=== PATIENT | male | born 1945 | race Caucasian/White ===

== ENCOUNTER 2016-12-06 10:19 | Emergency (ER) | payer BC, MEDICARE ==
[~2016-12-06 10:19] MED LIST: /WARF3TA PO; CIPR500T89 PO; COUM7.5T PO; FERR28TA PO; FLOM5CAP PO; HYDR-3713 PO; METO100T PO; METO50TA2 PO; OXYB5TA PO; PARO40TA PO; PAXI40TA2 PO; PERCOCET PO; TOPR100T PO; TYLE325T5 PO; TYLE650T30 PO; VITA-112 PO; XARE15TA; ZYRT10CA PO
[2016-12-06] MEDS ORDERED: IPRATROPIUM 0.5MG/ALBUTEROL 2.5MG INH SOL UD 3ML (DUONEB)(J7620) As Ordered ONE (12:00)
[2016-12-06] MEDS ORDERED: AUGMENTIN 875 MG TAB As Ordered ONE (13:31)
--- NOTE | 2016-12-06 13:40 | REP ---
CHEST, TWO VIEWS: HISTORY: Cough. COMPARISON: 06/24/2014. A minimal increase in interstitial markings is present in the lower lobes consistent with chronic interstitial fibrosis. Linear densities are present in the left lower lobe consistent with scar. There is tenting of the left hemidiaphragm. The heart is normal in size. The pulmonary vasculature is normal in appearance. Degenerative change is present in the thoracic spine. IMPRESSION: 1. Bibasilar chronic interstitial fibrosis. 2. Left lower lobe scar. Signed by Mike Barr MD 12/06/2016 02:00 P
--- NOTE | 2016-12-06 13:43 | EDDOCDS ---
Physician Documentation [facility] Name: Isaias Lauren Age: 71 yrs Sex: Male : 1945 Arrival Date: 12/06/2016 Time: 10:19 Bed PR Private MD: Alexsandra Nelson Disposition: 12/06/16 13:28 Discharged to Home/Self Care. Impression: Acute sinusitis, Acute bronchitis. - Condition is Stable. - Discharge Instructions: Sinusitis, Xkle-fj-[id number], Acute Bronchitis, Qpzj-jp-Lzps. - Prescriptions for Mucinex 600 mg - take 1 tablet by ORAL route 2 times per day; 30 tablet. Augmentin 875- 125 mg Oral Tablet - take 1 tablet by ORAL route every 12 hours for 10 days; 20 tablet. Claritin 10 mg Oral Tablet - take 1 tablet by ORAL route once daily As needed; 30 tablet. Albuterol Sulfate 90 mcg/actuation Inhalation HFA Aerosol Inhaler - inhale 2 puff by INHALATION route every 4 hours As needed; 1 Inhaler. - Medication Reconciliation, Local Pharmacy Hours form. - Follow up: Alexsandra Nelson; When: 1 - 2 days; Reason: Recheck today's complaints, Continuance of care. Follow up: Emergency Department; Reason: Worsening of conditions. - Problem is new. - Symptoms have improved. Historical: - Allergies: no known allergies; - Home Meds: 1. calcium citrate 500 mg Oral tbef twice a day 2. Paxil 40 mg Oral tab 1 tab nightly 3. Toprol XL 100 mg Oral Tb24 1 tab twice a day 4. Vitamin B-1 100 mg daily 5. Vitamin B-12 500 mcg Oral tab daily 6. Vitamin D Oral 5000 unit daily 7. Xarelto 20 mg oral tab 1 tab once daily - PMHx: Anxiety; Atrial Fib; Kidney stones; - PSHx: cardiac catherization; - Social history: Smoking status: Patient states former smoker of tobacco. No barriers to communication noted, The patient speaks fluent Kinyarwanda, Speaks appropriately for age. - Family history: Not pertinent. - : The pt / caregiver states he / she is on anticoagulants: Xarelto Home medication list is obtained from the patient. - Exposure Risk Screening:: None identified. Vital Signs: 12/06 10:20 BP 109 / 77; Pulse 81; Resp 18; Temp 97.1(O); Pulse Ox 100% on R/A; Weight 108.86 kg / elp 240 lbs; Height 6 ft. 2 in. (187.96 cm); 13:30 Resp 20; Pain 0/10; ttb 10:20 Body Mass Index 30.81 (108.86 kg, 187.96 cm) elp MDM: 11:34 Financial registration complete. lg 11:41 [facility] Payment Agreement was scanned into [employer] and attached to record. lg 11:54 Albuterol-Ipratropium 1 neb Nebulizer every 20 minutes x3 ordered. ef1 11:54 Call Respiratory ordered. ef1 11:55 Chest, 2 View (pa\E\lat) Ordered. EDMS 11:59 Call Respiratory complete. cmb 13:28 Amoxicillin-Clavulanate 875 mg 1 tabs PO once ordered. ef1 Administered Medications: 12:00 Drug: Albuterol-Ipratropium 1 neb [ipratropium-albuterol 0.5 mg-3 mg(2.5 mg base)/3 mL cs15 nebulization soln (1 neb)] Route: Nebulizer; 12:19 Drug: Albuterol-Ipratropium 1 neb [ipratropium-albuterol 0.5 mg-3 mg(2.5 mg base)/3 mL cs15 nebulization soln (1 neb)] Route: Nebulizer; 13:39 Drug: Amoxicillin-Clavulanate 1 tabs [amoxicillin 875 mg-potassium clavulanate 125 mg ttb tablet (1 tabs)] Route: PO; Signatures: Dispatcher [employer] EDMS Goldie Jolley, Reg Reg lg Isaias Newsome, RN RN mlb1 Melissa Liu, PA-C PA-C ef1 Ca Tubbs cmb Jaylene Magana RN RN ttb Jf Blunt RT cs15 The chart was reviewed and I authenticate all verbal orders and agree with the evaluation and treatment provided.Attachments: 11:41 [facility] Payment Agreement lg MTDD
--- NOTE | 2016-12-06 13:43 | EDDOCDS ---
Nurse's Notes [facility] Name: Isaias Lauren Age: 71 yrs Sex: Male : 1945 Arrival Date: 12/06/2016 Time: 10:19 Bed PR2 / Private MD: Alexsandra Nelson Diagnosis: Acute sinusitis;Acute bronchitis Presentation: 12/06 10:23 Presenting complaint: Patient states: "I have a cough I think it's a cold" began 10 mlb1 days ago. Adult Sepsis Screening: The patient does not have new or worsening altered mentation. Patient's respiratory rate is less than 22. Systolic blood pressure is greater than 100. Patient has a qSOFA score of 0- Negative Sepsis Screen. Suicide/Homicide risk assessment- the patient denies having any suicidal and/or homicidal ideations and does not present with any other emotional, behavioral or mental health complaints. Status: Patient is not a student services representative or dependent. Transition of care: patient was not received from another setting of care. 10:23 Acuity: YORDAN Level 4 mlb1 10:23 Method Of Arrival: Walkin/Carried/Asstd mlb1 Triage Assessment: 10:26 General: Appears in no apparent distress, Behavior is appropriate for age, cooperative. mlb1 Pain: Denies pain. Respiratory: Reports cough that is productive. Historical: - Allergies: no known allergies; - Home Meds: 1. calcium citrate 500 mg Oral tbef twice a day 2. Paxil 40 mg Oral tab 1 tab nightly 3. Toprol XL 100 mg Oral Tb24 1 tab twice a day 4. Vitamin B-1 100 mg daily 5. Vitamin B-12 500 mcg Oral tab daily 6. Vitamin D Oral 5000 unit daily 7. Xarelto 20 mg oral tab 1 tab once daily - PMHx: Anxiety; Atrial Fib; Kidney stones; - PSHx: cardiac catherization; - Social history: Smoking status: Patient states former smoker of tobacco. No barriers to communication noted, The patient speaks fluent Latvian, Speaks appropriately for age. - Family history: Not pertinent. - : The pt / caregiver states he / she is on anticoagulants: Xarelto Home medication list is obtained from the patient. - Exposure Risk Screening:: None identified. Screenin:39 Screening information is obtained from the patient. Fall risk: No risks identified. ttb Assistance ADL's: requires no assistance with activities of daily living. Abuse/DV Screen: The patient / caregiver reports he/she is: not in a situation that causes fear, pain or injury. Nutritional screening: No deficits noted. Advance Directives: Currently, there is no health care proxy. home support is adequate. Assessment: 13:39 General: Appears in no apparent distress, well nourished, well groomed, Behavior is ttb appropriate for age, cooperative, pleasant. Pain: Denies pain. Neurological: Level of Consciousness is awake, alert. EENT: Reports nasal congestion nasal discharge. Cardiovascular: Chest pain is denied. Respiratory: Airway is patent Respiratory effort is even, unlabored, Reports shortness of breath at rest on exertion cough that is productive, the patient has moderate shortness of breath Denies labored breathing. GI: Denies nausea, vomiting, pain. Derm: Skin is normal. Injury Description: No known injury. Vital Signs: 10:20 BP 109 / 77; Pulse 81; Resp 18; Temp 97.1(O); Pulse Ox 100% on R/A; Weight 108.86 kg; elp Height 6 ft. 2 in. (187.96 cm); 13:30 Resp 20; Pain 0/10; ttb 10:20 Body Mass Index 30.81 (108.86 kg, 187.96 cm) elp ED Course: 10:20 Patient visited by Viri Fuentes PCA. elp 10:20 Alexsandra Nelson is Private Physician. elp 10:20 Patient moved to Waiting elp 10:21 Patient visited by Viri Fuentes PCA. elp 10:21 Patient moved to Pre RCE elp 10:22 Patient visited by Isaias Newsome, RN. mlb1 10:23 Triage Initiated mlb1 10:27 Patient visited by Isaias Newsome, NAYANA. mlb1 11:16 Patient moved to Triage 3 mcp 11:21 Melissa [facility]. ef1 11:21 Alisa Dwyer MD is Attending Physician. ef1 11:32 Patient visited by Melissa Liu PA-C. ef1 11:41 [facility] Payment Agreement was scanned into [employer] and attached to record. lg 11:55 Patient moved to PR2 / 26 ttb 11:58 Patient name changed from Mike\\S\\M\\S\\[place]\\S\\ to Isaias\\S\\ \\S\\[place]. EDMS 12:17 Patient visited by Melissa Liu PA-C. ef1 12:57 Patient visited by Melissa Liu PA-C. ef1 13:27 Patient visited by Melissa Liu PA-C. ef1 13:28 Alexsandra Nelson is Referral Physician. ef1 13:39 The patient / caregiver is instructed regarding the plan of care and ED course. Patient ttb has correct armband on for positive identification. 13:39 No IV's were initiated during this patient's visit. No procedures done that require ttb assistance. 13:42 Patient visited by Jaylene Magana RN. ttb Administered Medications: 12:00 Drug: Albuterol-Ipratropium 1 neb [ipratropium-albuterol 0.5 mg-3 mg(2.5 mg base)/3 mL cs15 nebulization soln (1 neb)] Route: Nebulizer; 12:19 Drug: Albuterol-Ipratropium 1 neb [ipratropium-albuterol 0.5 mg-3 mg(2.5 mg base)/3 mL cs15 nebulization soln (1 neb)] Route: Nebulizer; 13:39 Drug: Amoxicillin-Clavulanate 1 tabs [amoxicillin 875 mg-potassium clavulanate 125 mg ttb tablet (1 tabs)] Route: PO; RT: 12:19 Initial Med Neb Given as ordered Patient tolerated procedure well without adverse cs15 effect. Respiratory: Respiratory effort is unlabored, Respiratory pattern is regular Breath sounds are diminished bilaterally. Denies shortness of breath. 12:20 Subsequent Med Neb Given as ordered. Respiratory: Breath sounds are coarse Breath cs15 sounds with crackles bilaterally. 12:21 Respiratory: Breath sounds with wheezes bilaterally. at expiration. cs15 12:38 Respiratory: Breath sounds are clear bilaterally. cs15 Order Results: There are currently no results for this order. Outcome: 13:28 Discharge ordered by Provider. ef1 13:39 Discharge Assessment: Patient awake, alert and oriented x 3. No cognitive and/or ttb functional deficits noted. Patient verbalized understanding of disposition instructions. Patient awake and alert. patient administered narcotics - no. The following High Risk Discharge criteria are identified: None. Discharged to home ambulatory. Condition: good Condition: stable Condition: improved. Discharge instructions given to patient, Instructed on discharge instructions, follow up and referral plans. medication usage, Demonstrated understanding of instructions, medications, increase fluids Pt was receptive of discharge instructions/ teaching. Prescriptions given X 4. No special radiology studies were completed. 13:42 Property :Personal belongings accompany Pt. ttb 13:42 Patient left the ED. ttb Signatures: Dispatcher [employer] Lotus Bauhg, RN RN Goldie Kaplan, Eric Reg Isaias Barron RN RN mlb1 Melissa Liu, PA-C PA-C ef1 Jaylene Magana RN RN ttb Viri Fuentes, DISPATCH COORDINATOR DISPATCH COORDINATOR Jf Lofton,RT RT cs15 MTDD
--- NOTE | 2016-12-08 14:44 | EDDOCDS ---
Physician Documentation [facility] Name: Isaias Lauren Age: 71 yrs Sex: Male : 1945 Arrival Date: 12/06/2016 Time: 10:19 Bed PR Private MD: Alexsandra Nelson Disposition: 12/06/16 13:28 Discharged to Home/Self Care. Impression: Acute sinusitis, Acute bronchitis. - Condition is Stable. - Discharge Instructions: Sinusitis, Nssa-vq-Tfsp, Acute Bronchitis, Jowj-wk-Anwp. - Prescriptions for Mucinex 600 mg - take 1 tablet by ORAL route 2 times per day; 30 tablet. Augmentin 875- 125 mg Oral Tablet - take 1 tablet by ORAL route every 12 hours for 10 days; 20 tablet. Claritin 10 mg Oral Tablet - take 1 tablet by ORAL route once daily As needed; 30 tablet. Albuterol Sulfate 90 mcg/actuation Inhalation HFA Aerosol Inhaler - inhale 2 puff by INHALATION route every 4 hours As needed; 1 Inhaler. - Medication Reconciliation, Local Pharmacy Hours form. - Follow up: Alexsandra Nelson; When: 1 - 2 days; Reason: Recheck today's complaints, Continuance of care. Follow up: Emergency Department; Reason: Worsening of conditions. - Problem is new. - Symptoms have improved. Historical: - Allergies: no known allergies; - Home Meds: 1. calcium citrate 500 mg Oral tbef twice a day 2. Paxil 40 mg Oral tab 1 tab nightly 3. Toprol XL 100 mg Oral Tb24 1 tab twice a day 4. Vitamin B-1 100 mg daily 5. Vitamin B-12 500 mcg Oral tab daily 6. Vitamin D Oral 5000 unit daily 7. Xarelto 20 mg oral tab 1 tab once daily - PMHx: Anxiety; Atrial Fib; Kidney stones; - PSHx: cardiac catherization; - Social history: Smoking status: Patient states former smoker of tobacco. No barriers to communication noted, The patient speaks fluent Persian, Speaks appropriately for age. - Family history: Not pertinent. - : The pt / caregiver states he / she is on anticoagulants: Xarelto Home medication list is obtained from the patient. - Exposure Risk Screening:: None identified. Vital Signs: 12/06 10:20 BP 109 / 77; Pulse 81; Resp 18; Temp 97.1(O); Pulse Ox 100% on R/A; Weight 108.86 kg / elp 240 lbs; Height 6 ft. 2 in. (187.96 cm); 13:30 Resp 20; Pain 0/10; ttb 10:20 Body Mass Index 30.81 (108.86 kg, 187.96 cm) elp MDM: 11:34 Financial registration complete. lg 11:41 [facility] Payment Agreement was scanned into [employer] and attached to record. lg 11:54 Albuterol-Ipratropium 1 neb Nebulizer every 20 minutes x3 ordered. ef1 11:54 Call Respiratory ordered. ef1 11:55 Chest, 2 View (pa\E\lat) Ordered. EDMS 11:59 Call Respiratory complete. cmb 13:28 Amoxicillin-Clavulanate 875 mg 1 tabs PO once ordered. ef1 15:29 T-Sheet-- Draft Copy was scanned into [employer] and attached to record. gb 15:29 Radiology Report was scanned into [employer] and attached to record. gb Administered Medications: 12:00 Drug: Albuterol-Ipratropium 1 neb [ipratropium-albuterol 0.5 mg-3 mg(2.5 mg base)/3 mL cs15 nebulization soln (1 neb)] Route: Nebulizer; 12:19 Drug: Albuterol-Ipratropium 1 neb [ipratropium-albuterol 0.5 mg-3 mg(2.5 mg base)/3 mL cs15 nebulization soln (1 neb)] Route: Nebulizer; 13:39 Drug: Amoxicillin-Clavulanate 1 tabs [amoxicillin 875 mg-potassium clavulanate 125 mg ttb tablet (1 tabs)] Route: PO; Signatures: Dispatcher [employer] EDMS Jade Sneed, Reg Reg gb Goldie Jolley, Reg Reg lg Isaais Newsome RN RN mlb1 Melissa Liu, PAConnerC PA-C ef1 Ca Tubbs Teresa, RN RN ttb Jf Blunt RT cs15 The chart was reviewed and I authenticate all verbal orders and agree with the evaluation and treatment provided.Attachments: 11:41 [facility] Payment Agreement lg 15:29 T-Sheet-- Draft Copy gb Chart Complete MTDD
--- NOTE | 2016-12-08 14:44 | EDDOCDS ---
Physician Documentation [facility] Name: Isaias Lauren Age: 71 yrs Sex: Male : 1945 Arrival Date: 12/06/2016 Time: 10:19 Bed PR Private MD: Alexsandra Nelson Disposition: 12/06/16 13:28 Discharged to Home/Self Care. Impression: Acute sinusitis, Acute bronchitis. - Condition is Stable. - Discharge Instructions: Sinusitis, Cpvv-[id number], Acute Bronchitis, Fyjn-pm-[id number]. - Prescriptions for Mucinex 600 mg - take 1 tablet by ORAL route 2 times per day; 30 tablet. Augmentin 875- 125 mg Oral Tablet - take 1 tablet by ORAL route every 12 hours for 10 days; 20 tablet. Claritin 10 mg Oral Tablet - take 1 tablet by ORAL route once daily As needed; 30 tablet. Albuterol Sulfate 90 mcg/actuation Inhalation HFA Aerosol Inhaler - inhale 2 puff by INHALATION route every 4 hours As needed; 1 Inhaler. - Medication Reconciliation, Local Pharmacy Hours form. - Follow up: Alexsandra Nelson; When: 1 - 2 days; Reason: Recheck today's complaints, Continuance of care. Follow up: Emergency Department; Reason: Worsening of conditions. - Problem is new. - Symptoms have improved. Historical: - Allergies: no known allergies; - Home Meds: 1. calcium citrate 500 mg Oral tbef twice a day 2. Paxil 40 mg Oral tab 1 tab nightly 3. Toprol XL 100 mg Oral Tb24 1 tab twice a day 4. Vitamin B-1 100 mg daily 5. Vitamin B-12 500 mcg Oral tab daily 6. Vitamin D Oral 5000 unit daily 7. Xarelto 20 mg oral tab 1 tab once daily - PMHx: Anxiety; Atrial Fib; Kidney stones; - PSHx: cardiac catherization; - Social history: Smoking status: Patient states former smoker of tobacco. No barriers to communication noted, The patient speaks fluent Sami, Speaks appropriately for age. - Family history: Not pertinent. - : The pt / caregiver states he / she is on anticoagulants: Xarelto Home medication list is obtained from the patient. - Exposure Risk Screening:: None identified. Vital Signs: 12/06 10:20 BP 109 / 77; Pulse 81; Resp 18; Temp 97.1(O); Pulse Ox 100% on R/A; Weight 108.86 kg / elp 240 lbs; Height 6 ft. 2 in. (187.96 cm); 13:30 Resp 20; Pain 0/10; ttb 10:20 Body Mass Index 30.81 (108.86 kg, 187.96 cm) elp MDM: 11:34 Financial registration complete. lg 11:41 [facility] Payment Agreement was scanned into [employer] and attached to record. lg 11:54 Albuterol-Ipratropium 1 neb Nebulizer every 20 minutes x3 ordered. ef1 11:54 Call Respiratory ordered. ef1 11:55 Chest, 2 View (pa\E\lat) Ordered. EDMS 11:59 Call Respiratory complete. cmb 13:28 Amoxicillin-Clavulanate 875 mg 1 tabs PO once ordered. ef1 15:29 T-Sheet-- Draft Copy was scanned into [employer] and attached to record. gb 15:29 Radiology Report was scanned into [employer] and attached to record. gb Administered Medications: 12:00 Drug: Albuterol-Ipratropium 1 neb [ipratropium-albuterol 0.5 mg-3 mg(2.5 mg base)/3 mL cs15 nebulization soln (1 neb)] Route: Nebulizer; 12:19 Drug: Albuterol-Ipratropium 1 neb [ipratropium-albuterol 0.5 mg-3 mg(2.5 mg base)/3 mL cs15 nebulization soln (1 neb)] Route: Nebulizer; 13:39 Drug: Amoxicillin-Clavulanate 1 tabs [amoxicillin 875 mg-potassium clavulanate 125 mg ttb tablet (1 tabs)] Route: PO; Signatures: Dispatcher [employer] EDMS Jade Sneed, Reg Reg gb Goldie Jolley, Reg Reg lg Isaias Newsome RN RN mlb1 Melissa Liu, PAConnerC PA-C ef1 Ca Tubbs Teresa, RN RN ttb Jf Blunt RT cs15 The chart was reviewed and I authenticate all verbal orders and agree with the evaluation and treatment provided.Attachments: 11:41 [facility] Payment Agreement lg 15:29 T-Sheet-- Draft Copy gb Chart Complete MTDD
--- NOTE | 2016-12-08 14:44 | EDDOCDS ---
Nurse's Notes [facility] Name: Isaias Lauren Age: 71 yrs Sex: Male : 1945 Arrival Date: 12/06/2016 Time: 10:19 Bed PR2 / Private MD: Alexsandra Nelson Diagnosis: Acute sinusitis;Acute bronchitis Presentation: 12/06 10:23 Presenting complaint: Patient states: "I have a cough I think it's a cold" began 10 mlb1 days ago. Adult Sepsis Screening: The patient does not have new or worsening altered mentation. Patient's respiratory rate is less than 22. Systolic blood pressure is greater than 100. Patient has a qSOFA score of 0- Negative Sepsis Screen. Suicide/Homicide risk assessment- the patient denies having any suicidal and/or homicidal ideations and does not present with any other emotional, behavioral or mental health complaints. 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 Transition of care: patient was not received from another setting of care. 10:23 Acuity: YORDAN Level 4 mlb1 10:23 Method Of Arrival: Walkin/Carried/Asstd mlb1 Triage Assessment: 10:26 General: Appears in no apparent distress, Behavior is appropriate for age, cooperative. mlb1 Pain: Denies pain. Respiratory: Reports cough that is productive. Historical: - Allergies: no known allergies; - Home Meds: 1. calcium citrate 500 mg Oral tbef twice a day 2. Paxil 40 mg Oral tab 1 tab nightly 3. Toprol XL 100 mg Oral Tb24 1 tab twice a day 4. Vitamin B-1 100 mg daily 5. Vitamin B-12 500 mcg Oral tab daily 6. Vitamin D Oral 5000 unit daily 7. Xarelto 20 mg oral tab 1 tab once daily - PMHx: Anxiety; Atrial Fib; Kidney stones; - PSHx: cardiac catherization; - Social history: Smoking status: Patient states former smoker of tobacco. No barriers to communication noted, The patient speaks fluent Andorran, Speaks appropriately for age. - Family history: Not pertinent. - : The pt / caregiver states he / she is on anticoagulants: Xarelto Home medication list is obtained from the patient. - Exposure Risk Screening:: None identified. Screenin:39 Screening information is obtained from the patient. Fall risk: No risks identified. ttb Assistance ADL's: requires no assistance with activities of daily living. Abuse/DV Screen: The patient / caregiver reports he/she is: not in a situation that causes fear, pain or injury. Nutritional screening: No deficits noted. Advance Directives: Currently, there is no health care proxy. home support is adequate. Assessment: 13:39 General: Appears in no apparent distress, well nourished, well groomed, Behavior is ttb appropriate for age, cooperative, pleasant. Pain: Denies pain. Neurological: Level of Consciousness is awake, alert. EENT: Reports nasal congestion nasal discharge. Cardiovascular: Chest pain is denied. Respiratory: Airway is patent Respiratory effort is even, unlabored, Reports shortness of breath at rest on exertion cough that is productive, the patient has moderate shortness of breath Denies labored breathing. GI: Denies nausea, vomiting, pain. Derm: Skin is normal. Injury Description: No known injury. Vital Signs: 10:20 BP 109 / 77; Pulse 81; Resp 18; Temp 97.1(O); Pulse Ox 100% on R/A; Weight 108.86 kg; elp Height 6 ft. 2 in. (187.96 cm); 13:30 Resp 20; Pain 0/10; ttb 10:20 Body Mass Index 30.81 (108.86 kg, 187.96 cm) elp ED Course: 10:20 Patient visited by Viri Fuentes PCA. elp 10:20 Alexsandra Nelson is Private Physician. elp 10:20 Patient moved to Waiting elp 10:21 Patient visited by Viri Fuentes PCA. elp 10:21 Patient moved to Pre RCE elp 10:22 Patient visited by Isaias Newsome, RN. mlb1 10:23 Triage Initiated mlb1 10:27 Patient visited by Isaias Newsome, NAYANA. mlb1 11:16 Patient moved to Triage 3 mcp 11:21 [facility] ef1 11:21 Alisa Dwyer MD is Attending Physician. ef1 11:32 Patient visited by Melissa Liu PA-C. ef1 11:41 [facility] [place] Agreement was scanned into [facility] and attached to record. lg 11:55 Patient moved to PR2 / 26 ttb 11:58 Patient name changed from Mike\\S\\M\\S\\[place]\\S\\ to Isaias\\S\\ \\S\\[place]. EDMS 12:17 Patient visited by Melissa Liu PA-C. ef1 12:57 Patient visited by Melissa Liu PA-C. ef1 13:27 Patient visited by Melissa Liu PA-C. ef1 13:28 Alexsandra Nelson is Referral Physician. ef1 13:39 The patient / caregiver is instructed regarding the plan of care and ED course. Patient ttb has correct armband on for positive identification. 13:39 No IV's were initiated during this patient's visit. No procedures done that require ttb assistance. 13:42 Patient visited by Jaylene Magana RN. ttb 14:28 Chest, 2 View (pa\\E\\lat) Returned. EDMS 15:29 T-Sheet-- Draft Copy was scanned into [facility] and attached to record. gb 15:29 Radiology Report was scanned into [facility] and attached to record. gb Administered Medications: 12:00 Drug: Albuterol-Ipratropium 1 neb [ipratropium-albuterol 0.5 mg-3 mg(2.5 mg base)/3 mL cs15 nebulization soln (1 neb)] Route: Nebulizer; 12:19 Drug: Albuterol-Ipratropium 1 neb [ipratropium-albuterol 0.5 mg-3 mg(2.5 mg base)/3 mL cs15 nebulization soln (1 neb)] Route: Nebulizer; 13:39 Drug: Amoxicillin-Clavulanate 1 tabs [amoxicillin 875 mg-potassium clavulanate 125 mg ttb tablet (1 tabs)] Route: PO; RT: 12:19 Initial Med Neb Given as ordered Patient tolerated procedure well without adverse cs15 effect. Respiratory: Respiratory effort is unlabored, Respiratory pattern is regular Breath sounds are diminished bilaterally. Denies shortness of breath. 12:20 Subsequent Med Neb Given as ordered. Respiratory: Breath sounds are coarse Breath cs15 sounds with crackles bilaterally. 12:21 Respiratory: Breath sounds with wheezes bilaterally. at expiration. cs15 12:38 Respiratory: Breath sounds are clear bilaterally. cs15 Order Results: Radiology Order: Chest, 2 View (pa\\E\\lat) Test: Chest, 2 View (pa\\E\\lat) REASON FOR EXAMINATION: Cough; CHEST, TWO VIEWS:; ; HISTORY: Cough.; ; COMPARISON: 06/24/2014.; ; A minimal increase in interstitial markings is present in the lower lobes; consistent with chronic interstitial fibrosis. Linear densities are present in; the left lower lobe consistent with scar. There is tenting of the left; hemidiaphragm. The heart is normal in size. The pulmonary vasculature is normal; in appearance. Degenerative change is present in the thoracic spine.; ; IMPRESSION:; ; 1. Bibasilar chronic interstitial fibrosis.; ; 2. Left lower lobe scar.; ; ; Signed by; Mike Barr MD 12/06/2016 02:00 P; Outcome: 13:28 Discharge ordered by Provider. ef1 13:39 Discharge Assessment: Patient awake, alert and oriented x 3. No cognitive and/or ttb functional deficits noted. Patient verbalized understanding of disposition instructions. Patient awake and alert. patient administered narcotics - no. The following High Risk Discharge criteria are identified: None. Discharged to home ambulatory. Condition: good Condition: stable Condition: improved. Discharge instructions given to patient, Instructed on discharge instructions, follow up and referral plans. medication usage, Demonstrated understanding of instructions, medications, increase fluids Pt was receptive of discharge instructions/ teaching. Prescriptions given X 4. No special radiology studies were completed. 13:42 Property :Personal belongings accompany Pt. ttb 13:42 Patient left the ED. ttb Signatures: Dispatcher [employer] EDNJ Lotus Piper RN RN mcp Barnhardt, Gloria, Reg Reg Goldie Salazar, Reg Reg Isaias Barron RN RN mlb1 Melissa Liu, PA-C PA-C ef1 Jaylene Magana RN RN ttb Viir Fuentes, DIAGNOSTICS TECH DIAGNOSTICS TECH toshiap fJ Blunt,RT RT cs15 Chart Complete MTDD
== END 2016-12-06 13:42 | disposition home or self-care (01) ==
LOC: M ED 10:19
DX: J01.90 Acute sinusitis, unspecified (principal); J20.9 Acute bronchitis, unspecified; I48.91 Unspecified atrial fibrillation; F41.9 Anxiety disorder, unspecified; Z87.442 Personal history of urinary calculi; Z79.899 Other long term (current) drug therapy; Z79.01 Long term (current) use of anticoagulants; Z87.891 Personal history of nicotine dependence

== ENCOUNTER 2017-01-19 05:49 | Emergency (ER) | payer BC, MEDICARE ==
[~2017-01-19] VITALS: Ht 188 cm; Wt 108.9 kg
[2017-01-19 06:01] VITALS: BP 180/102
[2017-01-19] MEDS ORDERED: PERCOCET 5MG/325MG TAB PO ONE (07:15)
--- NOTE | 2017-01-19 08:03 | REP ---
LEFT SHOULDER SERIES: Three views. HISTORY: Shoulder pain. Comparison study is a two-view left shoulder series from 06:53 a.m. earlier on this date. FINDINGS: The left acromioclavicular joint is normally aligned. No fracture is seen. The humeral head is positioned slightly inferior with respect to the glenoid. Tangential scapular Y view shows no subluxation anterior or posterior. The findings are most compatible with joint effusion and capsular laxity. 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 Diffuse osteopenia is noted. An acromion process spurring is seen. IMPRESSION: No fracture seen. Slight inferior subluxation consistent with joint effusion and capsular laxity. Signed by Jon Koch MD 01/19/2017 10:43 A
[2017-01-19] MEDS ORDERED: PERC5TAB6 PO (08:25)
--- NOTE | 2017-01-19 08:59 | REP ---
Left shoulder series: Two views. History: Shoulder pain. Findings: The left humeral head is aligned somewhat inferior with respect to the glenoid on the frontal view. It is not subluxed anteriorly or posteriorly based on the tangential scapular Y-view. The findings are suggestive of joint effusion, possibly with related capsular laxity. The acromioclavicular joint is normally aligned. Minimal inferolateral acromion process spurring is seen. Impression: Probable joint effusion. No dislocation. Signed by Jon Koch MD 01/19/2017 10:44 A
--- NOTE | 2017-01-20 08:59 | ECGEPIP ---
Stationary ECG Study [facility] - ED Test Date: 2017-01-19 Pat Name: ASTON NUNEZ Department: Room: - Gender: M Patient Scheduling Manager: ct : 1945 Requested By: CHANDRIKA Metz Order Number: [id number] Reading MD: Theresa Henderson Measurements Intervals [place] Rate: 92 P: PA: 0 QRS: -5 QRSD: 90 T: 17 QT: 350 QTc: 435 Interpretive Statements ATRIAL FIBRILLATION WITH ABERRANT CONDUCTION OR VENTRICULAR PREMATURE COMPLEXES ABNORMAL RHYTHM ECG NSTTW ABNORMALITY SIMILAR 06/24/14 Electronically Signed On 01-20-2017 8:59:00 EST by Theresa Henderson
--- NOTE | 2017-01-21 18:58 | ED PDOC ---
Provider Note ORTHO FAXED FORMAL REPORT OF LEFT SHOULDER MLG Karen Akins MD Jan 21, 2017 18:58
== END 2017-01-19 08:58 | disposition home or self-care (01) ==
LOC: M ED 07:32
DX: M25.412 Effusion, left shoulder (principal); I48.91 Unspecified atrial fibrillation; Z86.718 Personal history of other venous thrombosis and embolism; Z98.84 Bariatric surgery status; Z87.891 Personal history of nicotine dependence; Z79.02 Long term (current) use of antithrombotics/antiplatelets; Z79.899 Other long term (current) drug therapy

== ENCOUNTER → 2017-06-14 | Outpatient (REF) | payer BC, MEDICARE ==
[~2017-06-14] MED LIST changes: +CIPR-249 PO; -CIPR500T89 PO; -OXYB5TA PO; +OXYB5TAB10 PO; -PARO40TA PO; +PARO40TA2 PO; +PERC5TAB12 PO
== END ==
LOC: M LAB REF 13:19
PROVIDERS: ATTEND Nurse Practitioner Family
DX: L72.3 Sebaceous cyst (principal)

== ENCOUNTER → 2017-10-25 | Outpatient (REF) | payer BC, MEDICARE ==
[2017-10-25 18:29] LABS: FOLATE 20.9 NG/ML
== END ==
LOC: M LAB REF 15:18
PROVIDERS: ATTEND Internal Medicine
DX: Z98.84 Bariatric surgery status (principal)

== ENCOUNTER → 2018-09-10 | Outpatient (REF) | payer BC, MEDICARE ==
[2018-09-11 13:54] LABS: APPEARANCE, URINE CLEAR (CLEAR); BACTERIA, URINE AUTO 1+ (NEGATIVE); BILIRUBIN, URINE AUTO NEGATIVE (NEGATIVE); BLOOD, URINE BLOOD 2+ (NEGATIVE); COLOR, URINE YELLOW (YELLOW); GLUCOSE, URINE (UA) AUTO NEGATIVE (NEGATIVE); KETONE, URINE AUTO NEGATIVE (NEGATIVE); LEUKOCYTE ESTERASE, URINE AUTO 1+ (NEGATIVE); MUCUS, URINE SMALL (NEGATIVE); NITRITE, URINE AUTO NEGATIVE (NEGATIVE); PROTEIN, URINE AUTO NEGATIVE (NEGATIVE); RBC, URINE AUTO 14 /HPF (0-3); SQUAMOUS EPITHELIAL CELL UR AU 0 /HPF (0-6); WBC, URINE AUTO 7 /HPF (0-3)
== END ==
LOC: M SMT 13:16
DX: R31.9 Hematuria, unspecified (principal)

== ENCOUNTER → 2018-09-24 | Outpatient (CLI) | payer BC, MEDICARE | LOC: M RAD 15:27 | DX: N20.0 Calculus of kidney (principal); K57.90 Diverticulosis of intestine, part unspecified, without perforation or abscess without bleeding; Z98.84 Bariatric surgery status; K76.89 Other specified diseases of liver | CPT/HCPCS: 74176 ==

== ENCOUNTER → 2018-10-21 | Outpatient (CLI) | payer BC, MEDICARE ==
[2018-10-21 15:27] LABS: APPEARANCE, URINE HAZY (CLEAR); BACTERIA, URINE AUTO NEGATIVE (NEGATIVE); BILIRUBIN, URINE AUTO NEGATIVE (NEGATIVE); BLOOD, URINE BLOOD 3+ (NEGATIVE); COLOR, URINE AMBER (YELLOW); GLUCOSE, URINE (UA) AUTO NEGATIVE (NEGATIVE); KETONE, URINE AUTO TRACE mg/dL (NEGATIVE); LEUKOCYTE ESTERASE, URINE AUTO TRACE (NEGATIVE); MUCUS, URINE SMALL (NEGATIVE); NITRITE, URINE AUTO NEGATIVE (NEGATIVE); PROTEIN, URINE AUTO NEGATIVE (NEGATIVE); RBC, URINE AUTO TNTC /HPF (0-3); SPECIFIC GRAVITY URINE AUTO 1.024 (1.002-1.035); SQUAMOUS EPITHELIAL CELL UR AU 0 /HPF (0-6); WBC, URINE AUTO 9 /HPF (0-3)
[2018-10-21 15:43] LABS: HEMATOCRIT 43.4 % (42.0-52.0); HEMOGLOBIN 14.4 g/dl (13.5-17.5); MEAN CORPUSCULAR HEMOGLOBIN 31.1 pg (27.0-33.0); MEAN CORPUSCULAR HGB CONC 33.2 g/dl (32.0-36.5); MEAN CORPUSCULAR VOLUME 93.7 fl (80.0-96.0); PLATELET COUNT, AUTOMATED 190 10^3/uL (150-450); RED BLOOD COUNT 4.63 10^6/uL (4.30-6.10); WHITE BLOOD COUNT 5.6 10^3/uL (4.0-10.0)
[2018-10-21 15:54] LABS: INR 1.38; PROTHROMBIN TIME 17.2 SECONDS (12.1-14.4)
[2018-10-21 15:55] LABS: PARTIAL THROMBOPLASTIN TIME 39.2 SECONDS (25.4-37.6)
[2018-10-21 16:08] LABS: ANION GAP 5 MEQ/L (8-16); BLOOD UREA NITROGEN 19 MG/DL (7-18); CALCIUM LEVEL 8.2 MG/DL (8.8-10.2); CARBON DIOXIDE LEVEL 30 MEQ/L (21-32); CHLORIDE LEVEL 105 MEQ/L (98-107); CREATININE FOR GFR 0.98 MG/DL (0.70-1.30); GLOMERULAR FILTRATION RATE > 60.0 (>42); GLUCOSE, FASTING 72 MG/DL (70-100); POTASSIUM SERUM 4.5 MEQ/L (3.5-5.1); SODIUM LEVEL 140 MEQ/L (136-145)
== END ==
LOC: M LAB 14:44
DX: Z01.818 Encounter for other preprocedural examination (principal); J84.10 Pulmonary fibrosis, unspecified; J98.4 Other disorders of lung; N20.0 Calculus of kidney; R82.8 Abnormal findings on cytological and histological examination of urine
CPT/HCPCS: 71046

== ENCOUNTER 2018-10-31 10:39 | Day surgery (SDC) | payer BC, MEDICARE ==
[2018-10-31] MEDS: LR 1,000 ML IV (12:15)
[2018-10-31] MEDS ORDERED: LIDOCAINE 2% INJ 100 MG/5 ML SDV (FOR ANES.) As Ordered (13:39)
[2018-10-31] MEDS ORDERED: fentaNYL 100 MCG/2 ML INJECTION (J3010) As Ordered ×2 (13:39→15:48)
[2018-10-31] MEDS ORDERED: PROPOFOL 200 MG/20 ML VIAL As Ordered (13:39)
[2018-10-31] MEDS ORDERED: MIDAZOLAM INJ 2 MG/2 ML VIAL (J2250) As Ordered (13:39)
[2018-10-31] MEDS: ceFAZolin SOD 1 GM in D5W MINI-BAG PLUS 50 ML IV (14:33)
[2018-10-31] MEDS ORDERED: PHENYLephrine HCL 500 MCG/5 ML (100MCG/ML) SYRINGE (J2370) As Ordered (15:17)
[2018-10-31] MEDS: CONRAY-60 60% 50ML VIAL (Q9961) As Ordered (15:37)
[2018-10-31] MEDS ORDERED: SEVOFLURANE INHAL SOLN 250 ML BTL As Ordered (15:49)
[2018-10-31] MEDS ORDERED: ONDANSETRON 4MG/2ML VIAL (J2405) As Ordered (17:21)
[2018-10-31] MEDS ORDERED: fentaNYL 100 MCG/2 ML INJECTION (J3010) IV (17:45)
[2018-10-31] MEDS ORDERED: HYDROMORPHONE HCL 0.5 MG/ 0.5 ML SYRINGE (J1170 PER 1) IV (17:45)
[2018-10-31] MEDS ORDERED: ONDANSETRON 4MG/2ML VIAL (J2405) IV (17:45)
[2018-10-31] MEDS ORDERED: PERCOCET 5MG/325MG TAB PO ×3 (17:45)
[2018-10-31] MEDS ORDERED: LR 1,000 ML IV (17:45)
== END 2018-10-31 18:50 | disposition home or self-care (01) ==
LOC: M SDC 10:39
DX: N20.0 Calculus of kidney (principal); I48.91 Unspecified atrial fibrillation; K21.9 Gastro-esophageal reflux disease without esophagitis; D64.9 Anemia, unspecified; Z79.01 Long term (current) use of anticoagulants; Z79.899 Other long term (current) drug therapy; Z87.891 Personal history of nicotine dependence
CPT/HCPCS: 52356

== ENCOUNTER → 2018-11-20 | Outpatient (REF) | payer BC, MEDICARE ==
[~2018-11-20] MED LIST changes: +FLOM0.4C39 PO; -FLOM5CAP PO; +RANI1SYP PO; -TOPR100T PO; +TOPR100T13 PO
== END ==
LOC: M SMT 12:51
PROVIDERS: ATTEND Urology Pediatric Urology
DX: R82.998 Other abnormal findings in urine (principal)

== ENCOUNTER → 2018-11-20 | Outpatient (REF) | payer BC, MEDICARE | LOC: M LABSMT 13:48 | PROVIDERS: ATTEND Urology Pediatric Urology | DX: Z53.20 Procedure and treatment not carried out because of patient's decision for unspecified reasons (principal) ==

== ENCOUNTER → 2019-01-21 | Outpatient (REF) | payer BC, MEDICARE ==
[2019-01-21 19:17] LABS: FOLATE 23.4 NG/ML
== END ==
LOC: M LAB REF 18:32
PROVIDERS: ATTEND Internal Medicine
DX: D50.9 Iron deficiency anemia, unspecified (principal); Z98.84 Bariatric surgery status

== ENCOUNTER 2019-05-25 19:57 | Emergency (ER) | payer BC, MEDICARE ==
[~2019-05-25] VITALS: Ht 188 cm; Wt 119.5 kg
[~2019-05-25 19:57] MED LIST changes: -/WARF3TA PO; +COUM1TAB19 PO; +TOPR100T PO; -TOPR100T13 PO; -XARE15TA; +XARE15TA PO
[2019-05-25 19:58] VITALS: BP 127/72
[2019-05-25] MEDS ORDERED: FERR325T3 PO (20:03)
[2019-05-25 21:21] LABS: HEMOGLOBIN 14.2 g/dl (13.5-17.5); MEAN CORPUSCULAR HEMOGLOBIN 32.3 pg (27.0-33.0); MEAN CORPUSCULAR HGB CONC 33.8 g/dl (32.0-36.5); MEAN CORPUSCULAR VOLUME 95.7 fl (80.0-96.0); PLATELET COUNT, AUTOMATED 158 10^3/uL (150-450); RED BLOOD COUNT 4.39 10^6/uL (4.30-6.10)
--- NOTE | 2019-05-25 21:27 | REPVR ---
EXAM: US Duplex Right Lower Extremity Veins, Limited EXAM DATE/TIME: 05/25/2019 8:58 PM CLINICAL HISTORY: 73 years old, male; Edema, localized; Lower extremity, right; Additional info: R/O dvt TECHNIQUE: Imaging protocol: Real-time Duplex ultrasound of the Right Lower Extremity with 2-D licona scale, color Doppler flow and spectral waveform analysis. Limited exam was focused on the right lower extremity veins. COMPARISON: US Duplex, Ext,LOWER veins,unilat 11/08/2016 3:46 PM FINDINGS: Right deep veins: Unremarkable. The common femoral, femoral, proximal profunda femoral and popliteal veins are patent without thrombus. Normal Doppler waveforms. Normal compressibility and/or augmentation response. Right superficial veins: Unremarkable. Saphenofemoral junction is patent without thrombus. Soft tissues: Unremarkable. IMPRESSION: No sonographic evidence of deep vein thrombosis. Electronically signed by: Isaias Nuñez On 05/25/2019 21:27:15 PM
[2019-05-25 21:55] LABS: INR 1.26; PROTHROMBIN TIME 15.5 SECONDS (11.8-14.0)
[2019-05-25 21:56] LABS: PARTIAL THROMBOPLASTIN TIME 36.6 SECONDS (25.0-38.4)
[2019-05-25 21:59] LABS: BLOOD UREA NITROGEN 21 MG/DL (7-18); C REACTIVE PROTEIN QUANTITATIV 0.45 MG/DL (0.00-0.30); CALCIUM LEVEL 8.7 MG/DL (8.8-10.2); CARBON DIOXIDE LEVEL 27 MEQ/L (21-32); CHLORIDE LEVEL 108 MEQ/L (98-107); CREATININE FOR GFR 1.06 MG/DL (0.70-1.30); GLOMERULAR FILTRATION RATE > 60.0 (>42); GLUCOSE, FASTING 107 MG/DL (70-100); POTASSIUM SERUM 4.2 MEQ/L (3.5-5.1); SODIUM LEVEL 141 MEQ/L (136-145)
== END 2019-05-25 23:05 | disposition home or self-care (01) ==
LOC: M ED 19:57
DX: R60.0 Localized edema (principal); Z86.718 Personal history of other venous thrombosis and embolism; Z86.711 Personal history of pulmonary embolism; Z87.442 Personal history of urinary calculi; Z79.899 Other long term (current) drug therapy; Z79.01 Long term (current) use of anticoagulants

== ENCOUNTER → 2019-07-16 | Outpatient (CLI) | payer BC, MEDICARE ==
[~2019-07-16] MED LIST changes: +FERR325T3 PO
--- NOTE | 2019-07-16 15:11 | REP ---
KUB ABDOMEN AND PELVIS: Two KUB films of the abdomen and pelvis are performed. There is a large amount of retained fecal material in the colon on the right with scattered air and fecal material in the left colon. This limits evaluation for underlying renal calculi. There does appear to be a 6 mm calculus in the region of the inferior left kidney. No other definite calcifications are seen radiographically. There are mild degenerative changes of the spine. Electronically Signed by Sixto Winter MD 07/16/2019 03:38 P
== END ==
LOC: M SMT 14:00
PROVIDERS: ATTEND Urology
DX: N20.0 Calculus of kidney (principal)

== ENCOUNTER → 2020-01-14 | Outpatient (REF) | payer BC, MEDICARE ==
[2020-01-14 14:36] LABS: FOLATE 20.9 NG/ML
== END ==
LOC: M LAB REF 13:51
PROVIDERS: ATTEND Internal Medicine
DX: D50.9 Iron deficiency anemia, unspecified (principal); Z98.84 Bariatric surgery status

== ENCOUNTER 2021-04-06 17:28 | Emergency (ER) | payer BC, MEDICARE ==
[~2021-04-06] VITALS: Ht 188 cm; Wt 131.0 kg
[2021-04-06] MEDS ORDERED: METO1TAB33 (17:56)
[2021-04-06] MEDS ORDERED: THERTAB21 PO (17:56)
[2021-04-06] MEDS ORDERED: AMOX500C (17:56)
[2021-04-06 20:45] VITALS: BP 136/87
== END 2021-04-06 21:09 | disposition home or self-care (01) ==
LOC: M ED 17:28
DX: K91.841 Postprocedural hemorrhage of a digestive system organ or structure following other procedure (principal); I48.91 Unspecified atrial fibrillation; Z79.01 Long term (current) use of anticoagulants; Z98.84 Bariatric surgery status; Z79.899 Other long term (current) drug therapy

== ENCOUNTER → 2021-07-26 | Outpatient (REF) | payer BC, MEDICARE ==
[~2021-07-26] MED LIST changes: +AMOX500C; +METO1TAB33; +THERTAB21 PO
[2021-07-26 19:05] LABS: FOLATE 23.9 NG/ML
== END ==
LOC: M LAB REF 17:55
PROVIDERS: ATTEND Internal Medicine
DX: Z98.84 Bariatric surgery status (principal)

== ENCOUNTER → 2021-08-23 | Outpatient (CLI) | payer MEDICARE ==
--- NOTE | 2021-08-23 09:04 | REP ---
INDICATION: ELEVATED BILIRUBIN COMPARISON: None. TECHNIQUE: Real time licona scale ultrasound examination using curved array transducer. FINDINGS: Liver demonstrates diffusely heterogeneous echotexture without obvious focal mass lesion identified. 8 mm and 24 mm benign appearing cysts noted. Pancreas is incompletely evaluated due to interposed bowel gas. The gallbladder demonstrates mobile gallstones without wall thickening or pericholecystic fluid. No biliary ductal dilatation is appreciated and the common bile duct measures 4.3 mm diameter. Right kidney is normal in reniform shape without hydronephrosis and measures 13.2 x 7.3 x 5.5 cm. No ascites in the visualized right upper quadrant. IMPRESSION: Heterogeneous hepatic echotexture suggesting hepatocellular disease. Cholelithiasis. <Electronically signed by Shay Bell > 08/23/21 [id number]
== END ==
LOC: M RAD 08:01
PROVIDERS: ATTEND Internal Medicine
DX: K80.20 Calculus of gallbladder without cholecystitis without obstruction (principal); E80.7 Disorder of bilirubin metabolism, unspecified

== ENCOUNTER → 2021-08-26 | Outpatient (REF) | payer MEDICARE ==
[2021-08-26 13:50] LABS: HEPATITIS A ANTIBODY IGM NEGATIVE (NEGATIVE); HEPATITIS B CORE ANTIBODY IGM NEGATIVE (NEGATIVE); HEPATITIS B SURFACE ANTIGEN NEGATIVE (NEGATIVE); HEPATITIS C VIRUS ABY INDEX 0.1 INDEX (<0.8)
== END ==
LOC: M LAB REF 11:44
PROVIDERS: ATTEND Internal Medicine
DX: R94.5 Abnormal results of liver function studies (principal)

== ENCOUNTER → 2022-07-30 | Outpatient (REF) | payer MEDICARE | LOC: M LAB REF 17:47 | PROVIDERS: ATTEND Internal Medicine | DX: L02.212 Cutaneous abscess of back [any part, except buttock and flank] (principal) ==

== ENCOUNTER → 2022-10-17 | Outpatient (CLI) | payer MEDICARE ==
[2022-10-17 18:21] LABS: APPEARANCE, URINE MANUAL CLEAR (CLEAR); BILIRUBIN, URINE MANUAL 1+ (NEGATIVE); BLOOD URINE MANUAL POSITIVE (NEGATIVE); COLOR, URINE MANUAL YELLOW (YELLOW); GLUCOSE, URINE (UA) MANUAL NEGATIVE (NEGATIVE); KETONE, URINE MANUAL NEGATIVE (NEGATIVE); LEUKOCYTE ESTERASE, URINE MAN POSITIVE (NEGATIVE); NITRITE, URINE MANUAL NEGATIVE (NEGATIVE); PROTEIN, URINE MANUAL NEGATIVE (NEGATIVE); UROBILINOGEN, URINE MANUAL 1 MG mg/dl (NORMAL)
[2022-10-17 19:10] LABS: BACTERIA, URINE SMALL AMOUNT; HYALINE CAST, URINE NONE SEEN /lpf (0-1); RBC, URINE 20-30 /hpf (0-3); SQUAMOUS EPITHELIAL CELL URINE SMALL AMOUNT /hpf (SMALL AMT); WBC, URINE 15-20 /hpf (0-3)
== END ==
LOC: M PLAIMG 15:27
PROVIDERS: ATTEND Nurse Practitioner Women's Health
DX: Z87.442 Personal history of urinary calculi (principal); Z09 Encounter for follow-up examination after completed treatment for conditions other than malignant neoplasm; N20.0 Calculus of kidney

== ENCOUNTER → 2022-10-24 | Outpatient (REF) | payer MEDICARE ==
[2022-10-24 13:53] LABS: FERRITIN 32.2 NG/ML (10.5-307.3)
[2022-10-24 13:55] LABS: FOLATE 21.6 NG/ML (>5.4)
== END ==
LOC: M LAB REF 12:22
PROVIDERS: ATTEND Internal Medicine
DX: Z98.84 Bariatric surgery status (principal)

== ENCOUNTER 2023-02-04 20:41 | Emergency (ER) | payer MEDICARE ==
[~2023-02-04] VITALS: Ht 188 cm; Wt 136.3 kg
[2023-02-04] MEDS ORDERED: POTA10808 PO (20:53)
[2023-02-04 21:27] LABS: BASO % 0.3 % (0.0-1.0); EOS % 0.3 % (0.0-3.0); HEMATOCRIT 47.1 % (42.0-52.0); HEMOGLOBIN 15.6 g/dl (13.5-17.5); LYMPH # 0.5 10^3/uL (1.5-5.0); LYMPH % 5.2 % (24.0-44.0); MEAN CORPUSCULAR HEMOGLOBIN 31.3 pg (27.0-33.0); MEAN CORPUSCULAR HGB CONC 33.1 g/dl (32.0-36.5); MEAN CORPUSCULAR VOLUME 94.4 fl (80.0-96.0); MONO # 0.6 10^3/uL (0.0-0.8); MONO % 6.3 % (2.0-8.0); NEUTROPHILS # 8.7 10^3/uL (1.5-8.5); NEUTROPHILS % 87.6 % (36.0-66.0); PLATELET COUNT, AUTOMATED 172 10^3/uL (150-450); RED BLOOD COUNT 4.99 10^6/uL (4.30-6.10); WHITE BLOOD COUNT 9.9 10^3/uL (4.0-10.0)
[2023-02-04] MEDS ORDERED: MORPHINE 4 MG/ML 1ML VIAL IV ONE (22:00)
[2023-02-04] MEDS ORDERED: ONDANSETRON 4MG 2ML VIAL IV ONE ×2 (22:00→22:35)
[2023-02-04 22:01] LABS: ALBUMIN 3.9 G/DL (3.2-5.2); BILIRUBIN,DIRECT 0.9 MG/DL (<0.4); BILIRUBIN,TOTAL 3.3 MG/DL (0.3-1.2); TOTAL PROTEIN 7.6 G/DL (5.7-8.2)
[2023-02-04] MEDS ORDERED: TAMSULOSIN 0.4 MG CAP PO ONE (23:20)
[2023-02-04] MEDS ORDERED: FLOM0.4C39 PO (23:24)
[2023-02-05] MEDS ORDERED: ONDA4TAB6 PO (00:24)
[2023-02-05 01:02] VITALS: BP 134/88
== END 2023-02-05 01:31 | disposition home or self-care (01) ==
LOC: M ED 20:41
DX: N20.0 Calculus of kidney (principal); R31.9 Hematuria, unspecified; K80.80 Other cholelithiasis without obstruction; E80.6 Other disorders of bilirubin metabolism; I48.91 Unspecified atrial fibrillation; F41.9 Anxiety disorder, unspecified; Z98.84 Bariatric surgery status; Z79.01 Long term (current) use of anticoagulants; Z86.711 Personal history of pulmonary embolism
CPT/HCPCS: 74176; 76705; 80047; 80076; 81001; 83690; 85025; 96374; 96375; 96376; 99284; J2405

== ENCOUNTER → 2023-12-11 | Outpatient (REF) | payer MEDICARE ==
[~2023-12-11] MED LIST changes: +ONDA4TAB6 PO; -OXYB5TAB10 PO; +OXYB5TAB11 PO; +POTA10808 PO
[2023-12-11 17:30] LABS: FERRITIN 14.6 NG/ML (10.5-307.3); FOLATE > 24.0 NG/ML (>5.4); VITAMIN B12 LEVEL 370 PG/ML (211-911)
== END ==
LOC: M LAB REF 16:34
PROVIDERS: ATTEND Internal Medicine
DX: Z98.84 Bariatric surgery status (principal); D50.9 Iron deficiency anemia, unspecified

== ENCOUNTER 2024-06-12 10:31 | Emergency (ER) | payer MEDICARE ==
[~2024-06-12] VITALS: Ht 188 cm; Wt 116.2 kg
[~2024-06-12 10:31] MED LIST changes: +ONDA-282 PO; -ONDA4TAB6 PO; -OXYB5TAB11 PO; +OXYB5TAB14 PO
[2024-06-12] MEDS ORDERED: AMOX500T PO (13:49)
[2024-06-12] MEDS ORDERED: DEBR6.5S4 AD (13:49)
[2024-06-12 14:12] VITALS: BP 107/66; TEMP 97.5; O2SAT 98
== END 2024-06-12 14:21 | disposition home or self-care (01) ==
LOC: M ED 10:31
DX: J20.9 Acute bronchitis, unspecified (principal); I48.91 Unspecified atrial fibrillation; I10 Essential (primary) hypertension; Z79.2 Long term (current) use of antibiotics; Z79.899 Other long term (current) drug therapy

== ENCOUNTER → 2024-10-14 | Outpatient (REF) | payer MEDICARE ==
[~2024-10-14] MED LIST changes: +AMOX500T PO; +DEBR6.5S4 AD; -POTA10808 PO; +POTA10809 PO
== END ==
LOC: M LAB REF 16:36
PROVIDERS: ATTEND Nurse Practitioner Family
DX: R30.0 Dysuria (principal)

== ENCOUNTER → 2024-11-26 | Outpatient (REF) | payer MEDICARE ==
[2024-11-28 19:28] LABS: FERRITIN 15.8 NG/ML (10.5-307.3)
== END ==
LOC: M LAB REF 16:08
PROVIDERS: ATTEND Internal Medicine
DX: Z98.84 Bariatric surgery status (principal)